=== PATIENT | male | born 1950 | race Caucasian/White ===

== ENCOUNTER 2016-03-23 06:36 | Inpatient (IN) | payer OTHER, BC ==
[2016-03-23] VITALS (7 sets, daily range): BP systolic 113–161; BP diastolic 59–83
[~2016-03-23] VITALS: Ht 182.9 cm; Wt 129.7 kg
[~2016-03-23 06:36] MED LIST: ACTOS15 MG PO; ASPIR 8181 M1 PO; ASPIR-LOW81 MG PO; ATORVASTATIN CA40 MG PO; BENICAR20 MG PO; CEFDINIR300 MG PO; CLEOCIN300 MG PO; FISH OIL 1,001000 M1 PO; FLEXERIL5 MG PO; GLUCOPHAGE500 MG PO; GLUCOTROL XL2.5 MG PO; HYDROCODON-ACE1 EA10 PO; HYDROCODON-ACE1 EAC7 PO; HYDROCODON-ACE1 EAC9 PO; LEXAPRO10 MG PO; LIPITOR40 MG PO; LO-DOSE ASPIRIN81 M2 PO; Levaquin PO; NITROSTAT,NITR0.4 M1 SL; OMEPRAZOLE40 M1 PO; PERCOCET 5/31 TABLET PO; PROTONIX40 MG PO; RAPAFLO8 MG PO; TRICOR145 MG PO; VERAPAMIL HCL120 M1 PO; VERAPAMIL HCL120 MG PO; ZETIA10 MG PO; ZOFRAN4 MG PO; ZUPLENZ4 MG PO
[2016-03-23 08:10] LABS: POINT-OF-CARE METER ID UU14174212
[2016-03-23 21:58] LABS: POINT-OF-CARE METER ID UU13113712
[2016-03-24 00:25] VITALS: BP 117/65
[2016-03-24 03:50] VITALS: BP 111/64
[2016-03-24 08:00] VITALS: BP 124/64
[2016-03-24 08:10] LABS: ANION GAP 8 MEQ/L (2-14); CHLORIDE 103 MEQ/L (99-109); GFR ESTIMATE (CALCULATED) > 59 mL/min/; GLUCOSE 159 mg/dL (70-99); POTASSIUM 4.9 MEQ/L (3.7-5.4); SAMPLE HEMOLYSIS CHECK 0; SAMPLE ICTERIC CHECK 0; SAMPLE LIPEMIA CHECK 0; SODIUM 137 MEQ/L (136-147); UREA NITROGEN (BUN) 19 mg/dL (9-23)
[2016-03-24 08:34] LABS: HEMATOCRIT 35.2 % (38.0-50.0); MCV 89.1 FL (86-99)
[2016-03-24 11:55] LABS: POINT-OF-CARE METER ID UU13113712
[2016-03-24 11:56] VITALS: BP 121/60
[2016-03-24 15:51] VITALS: BP 122/87
[2016-03-24 16:57] LABS: POINT-OF-CARE METER ID UU13113712
[2016-03-24 20:29] VITALS: BP 143/69
[2016-03-24 21:59] LABS: POINT-OF-CARE METER ID UU13113712
[2016-03-25 00:03] VITALS: BP 110/59
[2016-03-25 04:06] VITALS: BP 115/55
[2016-03-25 05:50] LABS: HEMATOCRIT 35.1 % (38.0-50.0); MCV 89.5 FL (86-99)
[2016-03-25 07:37] LABS: POINT-OF-CARE METER ID UU13113712
[2016-03-25 08:00] VITALS: BP 129/63
[2016-03-25] MEDS ORDERED: LIDOCAINE700 MG TD (08:30)
[2016-03-25] MEDS ORDERED: OXYCODONE HCL5 MG PO (08:30)
[2016-03-25] MEDS ORDERED: XARELTO10 MG PO (08:30)
[2016-03-25] MEDS ORDERED: DOCUSATE SODIU100 MG PO (08:30)
[2016-03-25 11:55] LABS: POINT-OF-CARE METER ID UU13113712
== END 2016-03-25 14:43 | DRG 470 ==
LOC: 3WEST 06:36 → 2SOUTH 06:36 → SDC 08:21 → EDSTATUS 08:21 → 2SOUTH 08:22 → 3WEST 13:23 → 2SOUTH 14:11 → 3WEST 03-25 14:43
PROVIDERS: Orthopaedic Surgery; Physician Assistant
PROC: 0SRC0J9 Replacement of Right Knee Joint with Synthetic Substitute, Cemented, Open Approach (ICD-10-PCS; principal; 2016-03-23)
DX: M17.11 Unilateral primary osteoarthritis, right knee (principal); M22.41 Chondromalacia patellae, right knee; E66.9 Obesity, unspecified; I35.0 Nonrheumatic aortic (valve) stenosis; I10 Essential (primary) hypertension; E11.9 Type 2 diabetes mellitus without complications; K21.9 Gastro-esophageal reflux disease without esophagitis; E78.5 Hyperlipidemia, unspecified; G47.30 Sleep apnea, unspecified; F32.9 Major depressive disorder, single episode, unspecified; E78.00 Pure hypercholesterolemia, unspecified; Z96.652 Presence of left artificial knee joint; Z87.891 Personal history of nicotine dependence; Z86.73 Personal history of transient ischemic attack (TIA), and cerebral infarction without residual deficits; Z68.38 Body mass index [BMI] 38.0-38.9, adult; I25.2 Old myocardial infarction
CPT/HCPCS: 80048; 82948; 85014; 85018; C1713; J0690; J1170; J1885; J2795; J3010; J7030; J7050; L1820; S0020

== ENCOUNTER 2017-04-26 13:52 | Emergency (ER) | payer OTHER, BC ==
[~2017-04-26] VITALS: Ht 182.9 cm; Wt 131.0 kg
[~2017-04-26 13:52] MED LIST changes: +DOCUSATE SODIU100 MG PO; +LIDOCAINE700 MG TD; +OXYCODONE HCL5 MG PO; +XARELTO10 MG PO
[2017-04-26 14:31] LABS: HEMATOCRIT 33.6 % (38.0-50.0); HEMOGLOBIN 11.6 G/DL (12.5-16.6); MCH 32.3 PG (29.0-34.0); MCHC 34.5 G/DL (30.0-36.0); MCV 93.6 FL (86-99); PLATELET COUNT 210 K/uL (156-360); RBC DIS.WIDTH-SD 46.1 % (39-53); RED BLOOD COUNT 3.59 M/uL (4.00-5.50); WHITE BLOOD COUNT 7.5 K/uL (4.1-10.2)
[2017-04-26 14:40] LABS: CHLORIDE 104 mEq/L (99-109)
[2017-04-26 14:41] LABS: POTASSIUM 4.2 mEq/L (3.7-5.4); SODIUM 138 mEq/L (136-147)
[2017-04-26 14:42] LABS: GLUCOSE 121 mg/dL (70-99)
[2017-04-26 14:46] LABS: CREATININE 0.8 mg/dL (0.6-1.3); GFR ESTIMATE (CALCULATED) > 59 mL/min/ (58.99-99999)
[2017-04-26 14:47] LABS: UREA NITROGEN (BUN) 16 mg/dL (9-23)
[2017-04-26 14:52] LABS: TROP-I INTERPRETATION NEGATIVE; TROPONIN-I 0.12 ng/mL (0.0-0.30)
[2017-04-26] MEDS ORDERED: ELIQUIS5 MG PO (17:57)
[2017-04-26 18:28] VITALS: BP 107/75
== END 2017-04-26 18:43 | disposition home or self-care (01) ==
LOC: EME 13:52
PROC: 5A2204Z Restoration of Cardiac Rhythm, Single (ICD-10-PCS; principal; 2017-04-26)
DX: I48.0 Paroxysmal atrial fibrillation (principal); Z95.2 Presence of prosthetic heart valve; E11.9 Type 2 diabetes mellitus without complications; Z79.84 Long term (current) use of oral hypoglycemic drugs; E78.5 Hyperlipidemia, unspecified; I10 Essential (primary) hypertension; I25.2 Old myocardial infarction; G47.30 Sleep apnea, unspecified; I25.10 Atherosclerotic heart disease of native coronary artery without angina pectoris; E66.9 Obesity, unspecified; F32.9 Major depressive disorder, single episode, unspecified; K21.9 Gastro-esophageal reflux disease without esophagitis; Z96.652 Presence of left artificial knee joint; Z88.6 Allergy status to analgesic agent; Z87.891 Personal history of nicotine dependence
CPT/HCPCS: 71046; 80048; 84484; 85027; 93005; 99281; 99285

== ENCOUNTER 2017-05-04 07:31 | Emergency (ER) | payer OTHER, BC ==
[~2017-05-04] VITALS: Ht 182.9 cm; Wt 125.0 kg
[~2017-05-04 07:31] MED LIST changes: +ELIQUIS5 MG PO
[2017-05-04 07:55] LABS: BASOPHIL (%) 1.1 % (0-1); BASOPHIL COUNT 0.1 K/uL (0-0.1); EOSINOPHIL COUNT 0.4 K/uL (0-0.3); HEMATOCRIT 36.1 % (38.0-50.0); HEMOGLOBIN 12.2 G/DL (12.5-16.6); IMMATURE GRANULOCYTE (%) 0.4 % (0.0-0.7); LYMPHOCYTE (%) 21.1 % (15-42); MCH 31.6 PG (29.0-34.0); MCHC 33.8 G/DL (30.0-36.0); MCV 93.5 FL (86-99); MONOCYTE (%) 7.6 % (3-12); MONOCYTE COUNT 0.4 K/uL (0-0.8); NEUTROPHIL (%) 61.8 % (45-76); NEUTROPHIL COUNT 2.9 K/uL (1.8-6.4); PLATELET COUNT 178 K/uL (156-360); RBC DIS.WIDTH-CV 14.2 % (11.8-14.6); RBC DIS.WIDTH-SD 47.4 % (39-53); RED BLOOD COUNT 3.86 M/uL (4.00-5.50); WHITE BLOOD COUNT 4.7 K/uL (4.1-10.2)
[2017-05-04 08:03] LABS: INTER. NORMALIZED RATIO 1.5
[2017-05-04 08:04] LABS: CHLORIDE 106 mEq/L (99-109); SODIUM 136 mEq/L (136-147)
[2017-05-04 08:05] LABS: PTT 31.4 SEC (25-37)
[2017-05-04 08:06] LABS: GLUCOSE 225 mg/dL (70-99)
[2017-05-04 08:10] LABS: GFR ESTIMATE (CALCULATED) > 59 mL/min/ (58.99-99999)
[2017-05-04 08:11] LABS: UREA NITROGEN (BUN) 15 mg/dL (9-23)
[2017-05-04 08:16] LABS: TROP-I INTERPRETATION NEGATIVE; TROPONIN-I 0.04 ng/mL (0.0-0.30)
[2017-05-04 11:20] LABS: TROP-I INTERPRETATION NEGATIVE; TROPONIN-I 0.04 ng/mL (0.0-0.30)
[2017-05-04 11:59] VITALS: BP 107/61
== END 2017-05-04 12:01 | disposition home or self-care (01) ==
LOC: EME 07:31
PROVIDERS: Emergency Medicine
DX: I48.91 Unspecified atrial fibrillation (principal); E11.9 Type 2 diabetes mellitus without complications; I10 Essential (primary) hypertension; K21.9 Gastro-esophageal reflux disease without esophagitis; E78.5 Hyperlipidemia, unspecified; I25.2 Old myocardial infarction; F32.9 Major depressive disorder, single episode, unspecified; Z79.82 Long term (current) use of aspirin; Z79.84 Long term (current) use of oral hypoglycemic drugs; Z87.891 Personal history of nicotine dependence; Z90.49 Acquired absence of other specified parts of digestive tract; Z95.2 Presence of prosthetic heart valve; Z96.652 Presence of left artificial knee joint; Z88.6 Allergy status to analgesic agent
CPT/HCPCS: 71045; 80048; 84484; 85025; 85610; 85730; 93005; 99281; 99285